=== PATIENT | male | born 1970 | race Caucasian/White ===

== ENCOUNTER → 2019-10-02 18:16 | Outpatient (CLI) | payer OTHER, SELFPAY ==
--- NOTE | 2019-10-02 18:17 | DI.RAD.S_ITS ---
PROCEDURE: XR SHOULDER RT MIN 2V INDICATIONS: fall, pain x3mo, r/o AC sep or other bony abnormality TECHNIQUE: 3 views of the shoulder were acquired. COMPARISON: None. FINDINGS: Bones: No fractures or dislocations. No suspicious bony lesions. There is mild to moderate degenerative disease in a acromioclavicular and glenohumeral joint. Visualized ribs appear intact. Soft tissues: No suspicious soft tissue calcifications. IMPRESSION: No fracture or dislocation. Degenerative joint disease. Dictated by: Merly Raza M.D. on 10/02/2019 at 19:11 Approved by: Merly Raza M.D. on 10/02/2019 at 19:11
== END ==
PROVIDERS: Visit Provider Physician Assistant
DX: M25.511 Pain in right shoulder (principal); M19.011 Primary osteoarthritis, right shoulder
CPT/HCPCS: 73030

== ENCOUNTER → 2019-10-06 18:03 | Outpatient (CLI) | payer OTHER, SELFPAY ==
--- NOTE | 2019-10-06 18:04 | DI.MRI.S_ITS ---
PROCEDURE: MR SHOULDER RT WO CON INDICATIONS: pain, dec rom, fall from horse, r/o rotator cuff injury TECHNIQUE: Noncontrast oblique coronal T2 fast spin echo with fat saturation, oblique sagittal T1 spin echo and T2 fast spin echo with fat saturation, axial T1 spin echo and T2 fast spin echo with fat saturation through the shoulder. COMPARISON: None. FINDINGS: Image quality: Excellent. Rotator cuff: There is full-thickness rupture involving mid to posterior fibers of distal supraspinatus at its insertion the humeral head with 2 cm medial retraction of torn tendon fibers to the level of acromion. Most anterior fibers of the distal supraspinatus tendinosis and low-grade articular surface partial-thickness tear. Tendinosis and moderate grade bursal and articular surface partial-thickness tear involving distal infraspinatus is seen. Distal subscapularis tendinosis or low-grade intrasubstance partial-thickness tear is seen. Sagittal images demonstrate moderate grade supraspinatus muscle atrophy. Bones and bursae: No bone marrow contusions or fractures. There is moderate acromioclavicular joint and glenohumeral joint osteoarthritis. Moderate amount of subacromial subdeltoid bursal fluid and glenohumeral joint fluid is seen. No gross intra-articular loose body. Capsule and soft tissues: In the absence of intra-articular contrast, there is superior anterior labral tear at 12 to 1:00 position. The glenohumeral ligaments appear intact. Tendinosis involving proximal intra-articular portion of long head of biceps tendon is seen. The rotator interval appears normal, without fibrosis. The coracohumeral ligament is normal in thickness. IMPRESSION: 1. Full-thickness rupture of mid to posterior fibers of distal supraspinatus with 2 cm medial retraction of torn tendon fibers to the level of acromion. Moderate supraspinatus muscle atrophy. Tendinosis and low-grade articular partial-thickness tear involving most anterior fibers of distal supraspinatus at its insertion the humeral head. 2. Tendinosis and moderate grade articular and bursal surface partial-thickness tear involving distal infraspinatus. Tendinosis and low-grade partial-thickness tear involving the subscapularis. 3. Moderate acromioclavicular joint and glenohumeral joint osteoarthritis and moderate amount of joint effusion/subacromial subdeltoid bursal fluid. No gross loose body. 4. Suggestion of superior anterior labral tear at 12 to 1:00 position. Tendinosis or low-grade partial-thickness tear involving proximal intra-articular portion of long head of biceps tendon. Dictated by: Julián Panda M.D. on 10/09/2019 at 8:35 Approved by: Julián Panda M.D. on 10/09/2019 at 8:39
== END ==
PROVIDERS: Visit Provider Physician Assistant
DX: M25.511 Pain in right shoulder (principal); S46.011A Strain of muscle(s) and tendon(s) of the rotator cuff of right shoulder, initial encounter; M19.011 Primary osteoarthritis, right shoulder; M25.411 Effusion, right shoulder; V80.010A Animal-rider injured by fall from or being thrown from horse in noncollision accident, initial encounter
CPT/HCPCS: 73221

== ENCOUNTER → 2019-10-24 18:06 | Outpatient (CLI) | payer OTHER, SELFPAY ==
--- NOTE | 2019-10-24 18:08 | DI.RAD.S_ITS ---
PROCEDURE: XR HIP W PEL IF DONE RT 2V INDICATIONS: Progressive right hip pain, decreasing ROM TECHNIQUE: AP pelvis with lateral view(s) of the right hip(s). COMPARISON: None. FINDINGS: Bones: No fractures or dislocations. Pelvic ring appears intact. No suspicious bony lesions. Hip joint osteoarthritis appears mild on the left and mild to moderate on the right, without trauma. Soft tissues: The visualized bowel gas pattern is normal. No suspicious soft tissue calcifications. IMPRESSION: Mild to moderate right hip joint osteoarthritis, minimal degenerative change left hip. Dictated by: Kevon Walters M.D. on 10/25/2019 at 9:40 Approved by: Kevon Walters M.D. on 10/25/2019 at 9:41
== END ==
PROVIDERS: Visit Provider Family Medicine
DX: M25.551 Pain in right hip (principal); M16.11 Unilateral primary osteoarthritis, right hip
CPT/HCPCS: 73502

== ENCOUNTER → 2023-01-08 09:01 | Outpatient (CLI) | payer OTHER, SELFPAY ==
[2023-01-08 10:15] LABS: Add Manual Diff / Slide Review NO; Basophils Absolute Auto 100 /uL (0-100); Basophils Percent Auto 1.3 % (0-2); Eosinophils Absolute Auto 200 /uL (0-450); Eosinophils Percent Auto 3.3 % (2-4); Hematocrit 46.2 % (41-53); Hemoglobin 15.4 g/dL (13.5-17.5); Lymphocytes Absolute Auto 900 /uL (1100-4500); Mean Corpuscular HGB Conc 33.4 % (30-36); Mean Corpuscular Hemoglobin 28.7 PG (26-34); Mean Corpuscular Volume 85.8 fL (80-100); Monocytes Absolute Auto 400 /uL (0-900); Monocytes Percent Auto 6.9 % (3-14); Neutrophils Absolute Auto 4500 /uL (1500-7000); Neutrophils Percent Auto 73.5 % (50-75); Platelet Count 237 X10^3/uL (150-400); Red Blood Cell Count 5.38 X10^6/uL (4.5-5.9); Red Cell Distribution Width 14.1 % (11.6-14.8); White Blood Cell Count 6.2 X10^3/uL (4.5-11.0)
[2023-01-08 11:00] LABS: Alanine Aminotransferase 35 IU/L (<50); Albumin 4.5 g/dL (3.5-5.0); Albumin Globulin Ratio 1.6 (1.0-2.8); Alkaline Phosphatase 58 U/L (38-126); Aspartate Aminotransferase 30 IU/L (17-59); BUN Creatinine Ratio 22.8 (6-22); Bilirubin Total 0.4 mg/dL (0.2-1.3); Blood Urea Nitrogen 21 mg/dL (9-20); Calcium 9.1 mg/dL (8.4-10.2); Carbon Dioxide 21 mmol/L (22-32); Chloride 106 mmol/L (98-107); Cholesterol 237 mg/dL (140-199); Estimated Glomerular Filt Rate > 60 mL/min (>60); Globulin 2.8 g/dL (1.7-4.1); Glucose 94 mg/dL (70-100); HDL Cholesterol 46 mg/dL (40-60); HEMOLYSIS < 15 (0-50); LDL Cholesterol Calculated 172 mg/dL (<100); Potassium 4.7 mmol/L (3.4-5.1); Sodium 138 mmol/L (137-145); Total Protein 7.3 g/dL (6.3-8.2); Triglycerides 95 mg/dL (35-150)
[2023-01-08 11:28] LABS: Prostate Specific Antigen 2.14 ng/mL (0.10-4.00)
== END ==
PROVIDERS: PCP Family Medicine; Referring Provider Family Medicine; Visit Provider Family Medicine
DX: Z00.00 Encounter for general adult medical examination without abnormal findings (principal)
CPT/HCPCS: 36415; 80053; 80061; 84153; 85025

== ENCOUNTER 2023-03-19 09:41 | Day surgery (SDC) | payer BC, SELFPAY ==
--- NOTE | 2023-03-19 | PATH_ITS ---
[facility] Accession Number: [id number] No. of containers..03 Tissue . 01 Material submitted: . PART A: colon - SPLENIC FLEXURE POLYP PART B: colon - TRANSVERSE COLON POLYP PART C: rectum - RECTAL POLYP . 01 Diagnosis: A. Splenic Flexure Polyp: Colonic mucosa with prominent benign lymphoid aggregate. Negative for serrated lesion, dysplasia or malignancy. Additional step sections examined. . B. Transverse Colon Polyp: Colonic mucosa with prominent benign lymphoid aggregate. Negative for serrated lesion, dysplasia or malignancy. Additional step sections examined. . C. Rectal Polyp: Hyperplastic polyp. [facility] 03/25/2023 1455 Local . 01 Electronically signed: . Brodie Naik MD, PhD, Pathologist NPI- [id number] . 01 Gross description: . Part A: SPLENIC FLEXURE POLYP: Received in formalin is 1 fragment(s) of guerrero, soft tissue measuring 0.9 x 0.3 x 0.2 cm submitted entirely in 1 cassette(s) Part B: TRANSVERSE COLON POLYP: Received in formalin are 2 fragment(s) of guerrero, soft tissue measuring 0.4 x 0.4 x 0.1 cm to 0.1 x 0.1 x 0.1 cm submitted entirely in 1 cassette(s) Part C: RECTAL POLYP: Received in formalin are multiple fragment(s) of guerrero, soft tissue measuring 0.5 x 0.4 x 0.2 cm in aggregate submitted entirely in 1 cassette(s) /[facility] 03/22/2023 1621 Local . 01 Pathologist provided ICD-10: K63.5, K62.1 . 01 CPT . 060503, 257982, 646370 Specimen Comment: A courtesy copy of this report has been sent to [facility] Performed at: 01 [facility] [address], [place], [place] [id number] MD Evan Saleh MD Phone: [phone]
[2023-03-19] MEDS: LACTATED RINGERS 1,000 ML 42 ML IV (09:51)
[2023-03-19 09:54] VITALS: BP 146/84; PULSE 80; RESP 18; TEMP 36.1; O2SAT 98; BMI 28.2
--- NOTE | 2023-03-19 10:17 | PM.HP.1 ---
History of Present Illness History of Present Illness Date Patient Seen: 03/19/23 Time Patient Seen: 10:17 Chief complaint: Screening Colonoscopy Narrative: Mr. Blair presents today for a screening colonoscopy. He does have a family of colon cancer. His father was diagnosed around the age of 72 and he has couple relatives on his mom's side including his maternal grandmother who had colon cancer as well. Has 1 younger brother who has not been screened yet. He denies any concerning symptoms but on occasion reports the feeling of being gassy.? He does take some supplements but not a fiber supplement. He is never had a colonoscopy before. But he has no questions and understands the risks benefits and alternatives. [facility] Medical History Allergies (~1979) Encounter for well adult exam without abnormal findings Hemorrhoid History of rupture of Achilles tendon Hyperlipidemia Migraines (~1979) Right rotator cuff tendonitis Right shoulder pain Surgical History Anesthesia History of repair of rotator cuff (~2018) Rupture Achilles tendon (~2014) Family History Father Hypertension Cancer Grandfather Diabetes mellitus Mother Cancer Social History household members: spouse Smoking Status: Never smoker Smokeless tobacco user: chewing tobacco (quit 6 years ago.) alcohol intake: current substance use type: does not use Meds Home Medications and Allergies Home Medications Medication Instructions Recorded Confirmed Type No Known Home Medications 06/10/18 01/08/23 History Allergies Allergy/AdvReac Type Severity Reaction Status Date / Time No Known Drug Allergies Allergy Verified 03/19/23 09:53 Exam Vital Signs (past 8 hours): - 03/19/23 09:54 Temperature 97.0 F L Pulse Rate 80 Respiratory Rate 18 Blood Pressure 146/84 H Pulse Oximetry 98 Oxygen Delivery Method Room Air Oxygen Delivery Method Room Air Const General: cooperative, healthy appearing and comfortable HENMT Head: normal to inspection Eyes General: appearance normal, both eyes and all related structures Resp Effort & Inspection: normal respiratory effort and able to speak in complete sentences Cardio Pulses: radial pulses present GI Palpation: soft and No tender Assessment & Plan Assessment and plan (1) Family history of colon cancer in father: Status: Acute Plan Presents today for screening colonoscopy I discussed the risks benefits and alternatives including but not limited to perforation of the colon and an incomplete exam he fully understands these risks and would like to proceed.
--- NOTE | 2023-03-19 11:04 | PM.OP.COLON ---
Operative Date/Time/Diagnoses Date of procedure: 03/19/23 Time of procedure: 11:04 Pre-op diagnosis: Colon cancer screening. Average risk Post-op diagnosis: same Procedure & Clinicians Study performed: Colonoscopy and biopsy Same procedure as scheduled: Yes Indications: Colon cancer screening Surgeon: Louise Lui Procedure Notes Procedure in detail: Patient was taken to the endoscopy suite and placed in a left lateral decubitus position. A time-out was performed. Conscious sedation with the help of anesthesiology provider was induced and monitored throughout the case. The colonoscope was introduced into the anal canal and advanced through to the cecum. The prep was excellent [facility] bowel prep score of 3. A photograph of the appendiceal orifice was obtained. The scope was then slowly withdrawn for 20 minutes including biopsy times. There was 1 approximately 1 cm polyp at the splenic flexure which was removed with a danielle snare. There was a very small polyp just proximal to this that was removed with a Jumbo biopsy forceps in the transverse colon. There were 2 small rectal polyps which were biopsied with the forceps and sent in the same specimen jar. The scope was then retroflexed and the hemorrhoidal piles were unremarkable. Patient tolerated the procedure well and went in good condition to the postoperative care unit. He also had scattered diverticula throughout the sigmoid colon some photographs of these were obtained. Findings: divertiulosis and polyp(s) (Specimens: 1. Splenic flexure polyp 2. Small transverse colon polyp 3. Small rectal polyps x2) Complications: none Post-procedure Plan for aftercare: Depending on the pathology of the polyps a 5-10 year follow-up will be recommended.
[2023-03-19 11:11] VITALS: BP 117/73; PULSE 71; RESP 15; TEMP 35.8; O2SAT 97
[2023-03-19 11:13] VITALS: BP 114/84; PULSE 71; RESP 12; O2SAT 96
[2023-03-19 11:21] VITALS: BP 131/76; PULSE 69; RESP 15; TEMP 36.6; O2SAT 97
[2023-03-19 11:25] VITALS: BP 108/83; PULSE 66; RESP 17; O2SAT 97
== END 2023-03-19 11:40 | disposition home or self-care (01) ==
PROVIDERS: PCP Family Medicine; Referring Provider Surgery; Visit Provider Surgery
PROC: 0DJD8ZZ Inspection of Lower Intestinal Tract, Via Natural or Artificial Opening Endoscopic (ICD-10-PCS; CPT 45378; principal; 2023-03-19 10:45)
DX: Z12.11 Encounter for screening for malignant neoplasm of colon (principal); K57.30 Diverticulosis of large intestine without perforation or abscess without bleeding; K62.1 Rectal polyp
CPT/HCPCS: 45385; 45380; J2704

== ENCOUNTER → 2025-04-11 09:05 | Outpatient (CLI) | payer BC, SELFPAY ==
[2025-04-11 10:04] LABS: Hemoglobin A1C% w Est Avg Glu 5.2 % (4.0-6.0)
[2025-04-11 10:46] LABS: Alanine Aminotransferase 47 IU/L (<50); Albumin 4.6 g/dL (3.5-5.0); Albumin Globulin Ratio 1.7 (1.0-2.8); Alkaline Phosphatase 52 U/L (38-126); Aspartate Aminotransferase 32 IU/L (17-59); BUN Creatinine Ratio 23.5 (6-22); Bilirubin Total 0.6 mg/dL (0.2-1.3); Blood Urea Nitrogen 24 mg/dL (9-20); Calcium 9.6 mg/dL (8.4-10.2); Carbon Dioxide 21 mmol/L (22-32); Chloride 107 mmol/L (98-107); Cholesterol 251 mg/dL (140-199); Estimated Glomerular Filt Rate > 60 mL/min (>60); Globulin 2.7 g/dL (1.7-4.1); Glucose 103 mg/dL (70-99); HDL Cholesterol 48 mg/dL (40-60); HEMOLYSIS < 15 (0-50); LDL Cholesterol Calculated 185 mg/dL (<100); Potassium 4.8 mmol/L (3.4-5.1); Sodium 138 mmol/L (137-145); Total Protein 7.3 g/dL (6.3-8.2); Triglycerides 92 mg/dL (35-150)
[2025-04-11 11:12] LABS: Prostate Specific Antigen 2.63 ng/mL (0.10-4.00)
== END ==
PROVIDERS: PCP Family Medicine; Referring Provider Family Medicine; Visit Provider Family Medicine
DX: Z13.1 Encounter for screening for diabetes mellitus (principal); Z83.3 Family history of diabetes mellitus
CPT/HCPCS: 36415; 80053; 80061; 83036; 84153

== ENCOUNTER → 2025-07-02 19:14 | Outpatient (CLI) | payer BC, SELFPAY ==
--- NOTE | 2025-07-02 19:15 | DI.MRI.S_ITS ---
PROCEDURE: MR HIP RT WO CON INDICATIONS: right hip pain TECHNIQUE: Noncontrast coronal T1 spin echo and STIR through the bony pelvis. Coronal and axial T2 fast spin echo with fat saturation, sagittal T1 spin echo, and oblique axial T2 fast spin echo with fat saturation through the hip. COMPARISON: None. FINDINGS: Image quality: Excellent. Diffuse labral degeneration and tearing. Severe nonuniform cartilage loss with full-thickness cartilage loss along a broad region of the superior femoral head and acetabulum with associated subchondral cystic change, large marginal osteophytes and subchondral marrow edema like signal. Large complex effusion with intra- articular bodies. No tendon tear. No bursitis. No fracture. On large [id number] sequences of the entire pelvis, early degenerative changes of the left hip are noted and mild degenerative disc disease is evident. No aggressive appearing marrow replacing osseous lesion. IMPRESSION: Severe right hip osteoarthritis. Dictated by: Antonio Avila M.D. on 07/03/2025 at 9:03 Approved by: Antonio Avila M.D. on 07/03/2025 at 9:06
== END ==
LOC: MRI 19:14
PROVIDERS: PCP Family Medicine; Referring Provider Family Medicine; Visit Provider Family Medicine
DX: M16.11 Unilateral primary osteoarthritis, right hip (principal); M25.551 Pain in right hip
CPT/HCPCS: 73721

== ENCOUNTER → 2025-07-26 08:54 | Outpatient (CLI) | payer BC, SELFPAY ==
[2025-07-26 09:14] LABS: Add Manual Diff / Slide Review NO; Hematocrit 43.4 % (41-53); Hemoglobin 14.7 g/dL (13.5-17.5); Lymphocytes Absolute Auto 800 /uL (1100-4500); Mean Corpuscular HGB Conc 33.9 % (30-36); Mean Corpuscular Hemoglobin 29.1 PG (26-34); Mean Corpuscular Volume 85.9 fL (80-100); Platelet Count 233 X10^3/uL (150-400)
--- NOTE | 2025-07-26 09:34 | EKG_ITS ---
[address] [address] Test Date: 2025-07-26 Pat Name: Fernando Blair Department: Located Within [facility] Room: Gender: Male [employer] Operator: NAS : 1970 Requested By: Order Number: [id number] Reading MD: Chano Kellogg Measurements Intervals Bixby Rate: 61 P: 34 MD: 164 QRS: 13 QRSD: 94 T: 37 QT: 418 QTc: 420 Interpretive Statements Normal sinus rhythm Electronically Signed On 07-26-2025 17:09:33 PDT by Chano Kellogg
[2025-07-26 09:43] LABS: Albumin 4.4 g/dL (3.5-5.0); Blood Urea Nitrogen 23 mg/dL (9-20); Calcium 9.1 mg/dL (8.4-10.2); Carbon Dioxide 22 mmol/L (22-32); Chloride 107 mmol/L (98-107); Estimated Glomerular Filt Rate > 60 mL/min (>60); Glucose 96 mg/dL (70-99); HEMOLYSIS < 15 (0-50); Potassium 4.5 mmol/L (3.4-5.1); Sodium 138 mmol/L (137-145)
[2025-07-26 09:45] LABS: Hemoglobin A1C% w Est Avg Glu 5.5 % (4.0-6.0)
[2025-07-26 09:54] LABS: Prealbumin 28.6 mg/dL (17.6-36.0)
[2025-07-26 10:09] LABS: Vitamin D 25 Hydroxy (D3) 50.1 ng/mL (30.0-100.0)
== END ==
PROVIDERS: PCP Family Medicine; Referring Provider Orthopaedic Surgery Adult Reconstructive Orthopaedic Surgery; Visit Provider Orthopaedic Surgery Adult Reconstructive Orthopaedic Surgery
DX: Z00.00 Encounter for general adult medical examination without abnormal findings (principal); M16.11 Unilateral primary osteoarthritis, right hip; Z01.818 Encounter for other preprocedural examination
CPT/HCPCS: 36415; 80048; 82040; 82306; 83036; 84134; 85025; 93005